=== PATIENT | female | born 1945 | race Caucasian/White ===

== ENCOUNTER → 2018-12-07 08:59 | Emergency (ER) | payer MEDICARE, OTHER ==
[~2018-12-07 08:59] MED LIST: Acetaminophen TAB* 325 MG PO ONE; Bupivacaine 0.5% SDV PF* 30ML VIAL INJ ONE; Bupivacaine 0.5% W/EPI SDV* 30 ML VIAL ONE
[2018-12-07 14:03] VITALS: BP 141/87
--- NOTE | 2018-12-07 14:28 | ED ---
Upper Extremity Pain - HPI Summary HPI Summary: Patient is 73-year-old female presenting to the ED with a left wrist injury after falling on the ice. She states she fell on an outstretched arm. She denies any numbness or tingling. Deformity noted. Swelling noted. Denies any ecchymosis or erythema. Denies numbness, tingling or temperature changes. Patient is unable to flex or extend at the wrist joint. Denies any pain to the fingers, forearm or elbow. Patient is able to move all fingers and thumb opposition is intact. - History of Current Complaint Chief Complaint: EDExtremityUpper Stated Complaint: LEFT HAND/WRIST INJURY Time Seen by Provider: 12/07/18 09:33 Hx Obtained From: Patient Mechanism Of Injury: Direct Blow Onset/Duration: Started Hours Ago Timing: Constant Severity Initially: Mild Severity Currently: Mild Pain Location: Wrist Character: Aching Aggravating Factor(s): Nothing Alleviating Factor(s): Rest, Ice Associated Signs & Symptoms: Positive: Swelling. Negative: Redness, Bruising, Weakness, Numbness/Tingling, Chest Pain Related History: Dominant Hand Right - Risk Factors DVT Risk Factors: Negative Septic Arthritis Risk Factor: Negative Compartment Syndrome Risk Factors: Pain - Allergies/Home Medications Allergies/Adverse Reactions: Allergies Allergy/AdvReac Type Severity Reaction Status Date / Time aspirin Allergy Pain Verified 12/07/18 09:39 Home Medications: Home Medications Calcium 1,000 + D3 Caplet 1 dose PO DAILY 12/07/18 [History Confirmed 12/07/18] PMH/Surg Hx/FS Hx/Imm Hx Previously Healthy: Yes - Cancer History Hx Chemotherapy: Yes - BONE, RIGHT LEG WITH PROTHESIS Hx Radiation Therapy: No - Surgical History Surgery Procedure, Year, and Place: PARTIAL HYSTERECTOMY. OSTERGENIC SARCOMA. PROSTHETIC BONE RIGHT LEG - Immunization History Hx Pertussis Vaccination: No Immunizations Up to Date: Yes Infectious Disease History: No Infectious Disease History: Reports: Hx Shingles Denies: Traveled Outside the [place] in Last 30 Days - Social History Occupation: Unemployed Lives: With Family Alcohol Use: Rare Hx Substance Use: No Substance Use Type: Reports: None Smoking Status (MU): Never Smoked Tobacco Have You Smoked in the Last Year: No Review of Systems Constitutional: Negative Negative: Fever, Chills, Fatigue, Skin Diaphoresis Negative: Palpitations, Chest Pain Negative: Shortness Of Breath, Cough Genitourinary: Negative Positive: no symptoms reported, see HPI Positive: Arthralgia - left wrist injury Neurological: Negative All Other Systems Reviewed And Are Negative: Yes Physical Exam Triage Information Reviewed: Yes Vital Signs On Initial Exam: Initial Vitals Temp Pulse Resp BP Pulse Ox 97.5 F 66 16 93/74 98 12/07/18 09:09 12/07/18 09:09 12/07/18 09:09 12/07/18 09:09 12/07/18 09:09 Vital Signs Reviewed: Yes Appearance: Positive: Well-Appearing, Well-Nourished Skin: Positive: Warm, Skin Color Reflects Adequate Perfusion Head/Face: Positive: Normal Head/Face Inspection Eyes: Positive: EOMI, CHARANJIT, Conjunctiva Clear Neck: Positive: Supple Respiratory/Lung Sounds: Positive: Clear to Auscultation, Breath Sounds Present Cardiovascular: Positive: RRR, Pulses are Symmetrical in both Upper and Lower Extremities Musculoskeletal: Positive: Pain @ - left wrist Neurological: Positive: Speech Normal Psychiatric: Positive: Affect/Mood Appropriate AVPU Assessment: Alert Diagnostics - Vital Signs Vital Signs Temp Pulse Resp BP Pulse Ox 12/07/18 14:03 98.8 F 93 16 141/87 96 12/07/18 09:09 97.5 F 66 16 93/74 98 - Laboratory Lab Statement: Any lab studies that have been ordered have been reviewed, and results considered in the medical decision making process. Course/Dx - Course Course Of Treatment: Patient is evaluated for left wrist injury. Patient is unable to flex or extend the restrained due to pain and swelling. There is no ecchymosis seen. No open areas of abrasion, puncture wound or other. There is obvious deformity noted to put the dorsal side of the wrist and the volar side of the wrist. X-ray obtained which shows osteopenia. Angulated fracture of the distal radial metaphysis. Nondisplaced fracture of the styloid process of the ulna. Discussed case with Dr. Schmitz. Patient was placed in finger traps 20 minutes. Hematoma block with good effect. Interval manual reduction made. Sugar tong placed. F/u x-ray shows interval reduction of the degree of angulation of the distal radial metaphysis fracture. Sling given. Patient will follow-up with Dr. Schmitz in the clinic. She is given Tylenol in the ED. - Diagnoses Differential Diagnosis/HQI/PQRI: Positive: Fracture (Open), Hematoma, Strain, Sprain Provider Diagnoses: Radial fracture Discharge - Sign-Out/Discharge Documenting (check all that apply): Patient Departure Patient Received Moderate/Deep Sedation with Procedure: No - Discharge Plan Condition: Stable Disposition: HOME Patient Education Materials: Wrist Fracture in Adults (ED) Referrals: Rajan Wang MD [Medical Doctor] - Sia Lang MD [Primary Care Provider] - Additional Instructions: Ibuprofen 600mg three times daily for discomfort Sling is given for comfort Follow up with Dr. Wang - Billing Disposition and Condition Condition: STABLE Disposition: Home
== END | disposition home or self-care (01) ==
LOC: ED 08:59
DX: S52.502A Unspecified fracture of the lower end of left radius, initial encounter for closed fracture (principal); S52.615A Nondisplaced fracture of left ulna styloid process, initial encounter for closed fracture; W19.XXXA Unspecified fall, initial encounter; R60.9 Edema, unspecified; Y92.9 Unspecified place or not applicable
CPT/HCPCS: 96374; 99282; A9270-GY